=== PATIENT | male | born 1940 | race Caucasian/White ===

== ENCOUNTER 2016-11-04 15:38 | Outpatient (CLI) | payer MEDICARE, OTHER ==
[2016-11-04 16:05] LABS: BASOPHILS % 0.4 (0.0-1.5); EOSINOPHILS % 2.3 % (0.0-6.8); MEAN CORPUSCULAR HEMOGLOBIN 32.6 pg (28.0-34.0); MEAN CORPUSCULAR VOLUME 98.5 fl (80.0-100.0); NEUTROPHILS # 4.7 # k/uL (1.4-7.7)
[2016-11-04 16:34] LABS: eGFR (African) > 60; eGFR (Non-African) > 60
--- NOTE | 2016-11-04 17:27 | Diagnostic Imaging Report ---
[facility] [id number] [facility].[address] [id number] Report Submission Date: Nov 04, 2016 4:41:24 PM CDT Patient Study Name: YARON CONLEY Date: Nov 04, 2016 3:57:04 PM CDT Modality Type: CR Gender: M Description: LOWER EXTREMITY : 44 Institution: [facility] Physician: DELMY KEM - OP 3 views of the right ankle History: PAIN. INJURY ONE YEAR AGO. 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 Calcaneal enthesophyte present Subchondral cystic change at the talar dome. 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
== END 2016-11-04 15:40 ==
LOC: LAB 15:38
PROVIDERS: ATTEND Family Medicine
DX: E78.00 Pure hypercholesterolemia, unspecified (principal); I10 Essential (primary) hypertension; M25.571 Pain in right ankle and joints of right foot
CPT/HCPCS: 36415; 73610; 80053; 80061; 85025

== ENCOUNTER 2018-04-04 11:52 | Outpatient (CLI) | payer MEDICARE, OTHER ==
[2018-04-04 14:55] LABS: eGFR (Non-African) > 60
[2018-04-04 23:21] LABS: BASO % 0.3 % (0.0-1.5); EOS % 1.3 % (0.0-6.8); LYMPH ABS # 1.59 thou/uL (0.60-4.00); MCH. 33.6 pg (28.0-34.0); MCV 100.8 fL (80.0-100.0); MONOCYTE % 4.8 % (0.0-11.0); MONOCYTE ABS # 0.42 thou/uL (0.00-0.90); PLATELET COUNT 223 thou/uL (130-400)
== END 2018-04-04 11:53 ==
LOC: LAB 11:52
PROVIDERS: ATTEND Family Medicine
DX: I10 Essential (primary) hypertension (principal); E78.00 Pure hypercholesterolemia, unspecified; Z00.00 Encounter for general adult medical examination without abnormal findings; R97.20 Elevated prostate specific antigen [PSA]
CPT/HCPCS: 36415; 80053; 80061; 84153; 85025

== ENCOUNTER 2019-05-15 15:16 | Outpatient (CLI) | payer MEDICARE, OTHER ==
[2019-05-15 15:47] LABS: BASOPHILS % 0.5 % (0.0-1.5); NEUTROPHILS # 6.5 # k/uL (1.4-7.7)
[2019-05-15 16:36] LABS: eGFR (Non-African) > 60
[2019-05-15 16:37] LABS: HDL 54 mg/dL (>40)
== END 2019-05-15 15:21 ==
LOC: LAB 15:16
PROVIDERS: ATTEND Family Medicine
DX: I10 Essential (primary) hypertension (principal); E78.00 Pure hypercholesterolemia, unspecified; R97.20 Elevated prostate specific antigen [PSA]
CPT/HCPCS: 36415; 80053; 80061; 84153; 85025